=== PATIENT | male | born 1980 | race Caucasian/White ===

== ENCOUNTER 2017-07-26 09:49 | Emergency (ER) | payer BC ==
[~2017-07-26] VITALS: Ht 165.1 cm; Wt 105.6 kg
[2017-07-26 09:54] VITALS: Ht 165.1 cm; Wt 105.6 kg
--- NOTE | 2017-07-26 10:38 | EMERGENCY ROOM VISIT NOTE ---
History Report prepared by Gracy: Maia Ashraf Under the Supervision of: Dr. Myrna Haddad D.O. First contact with patient: 10:11 Chief Complaint: CARDIAC ASSESSMENT Stated Complaint: CHEST PAINS;SORENESS IN LEFT ARM Nursing Triage Summary: Left sided chest pain going down left arm ongoing for a month, worse today. Denies dyspnea. Pt has not been seen for this. "strong family cardiac history". Hx hyperlipidemia and sleep apnea. History of Present Illness The patient is a 37 year old male who presents to the Emergency Room with complaints of an episode of a sharp pain in his left arm radiating to his chest occurring a couple hours ago. The patient was driving to [place] to visit family when the episode occurred. He reports that moving his arm relieved his pain. The patient notes intermittent left chest "twinges" that radiate to his left arm beginning a month ago. The patient notes about ten of these episodes over the past month. He states these episodes have all been the same in severity and last a couple minutes at a time. He states today's episode, was more severe than the previous which prompted him to come to the ED. Presently, he denies any pain. He denies doing anything to make these episodes subside, they go away on their own. The patient thought these episodes were muscular related and due to recent travel. He notes smokeless tobacco use and drinking about a pot of coffee a day. The patient is usually very active but notes not exercising since May. He admits a previous history of reflux but denies any recent issues with it. He denies any changes in activities or diet. The patient drank three beers last night which is not normal for him. The patient works as a collections officer and notes increased stress with his job. Pt denies numbness, tingling, headache, dizziness, lightheadedness, back pain, change in vision, fevers, shortness of breath, nausea, vomiting, diarrhea, pain with urination, and melena. The patient has a history of hyperlipidemia and sleep apnea. The patient notes a family history of heart disease, hypertension, hyperlipemia, and cancer. Source of History: patient Onset: a couple hours ago Position: arm (left) Quality: sharp Timing: other (episode) Modifying Factors (Relieving): movement Associated Symptoms: + chest pain, No fevers, No headache, No SOB, No numbness Review of Systems See HPI for pertinent positives & negatives. A total of 10 systems reviewed and were otherwise negative. Past Medical & Surgical Medical Problems: (1) Hyperlipemia (2) Sleep apnea Family History FH: hyperlipidemia FH: hypertension FHx: cancer Heart disease Social History Smoking Status: Never Smoker Smokeless Tobacco Use: Yes Marital Status: Housing Status: lives with significant other Occupation Status: employed Current/Historical Medications No Active Prescriptions or Reported Meds Allergies Coded Allergies: No Known Allergies (Unverified , 07/26/17) Physical Exam Vital Signs Date Time Temp Pulse Resp B/P (MAP) Pulse Ox O2 Delivery O2 Flow Rate FiO2 07/26/17 12:56 62 18 130/62 96 07/26/17 12:16 59 18 130/82 96 Room Air 07/26/17 11:22 36.8 07/26/17 11:16 68 20 143/90 98 Room Air 07/26/17 10:13 75 07/26/17 09:54 100 Room Air 07/26/17 09:54 36.5 85 18 168/100 98 Room Air Physical Exam GENERAL: alert, well appearing, well nourished, no distress, non-toxic EYE EXAM: normal conjunctiva, PERRL and EOM's grossly intact OROPHARYNX: no exudate, no erythema, lips, buccal mucosa, and tongue normal and mucous membranes are moist NECK: supple, no nuchal rigidity, no adenopathy, non-tender LUNGS: Clear to auscultation. Normal chest wall mechanics, no wheezes/rhonchi/ rales HEART: no murmurs, S1 normal and S2 normal, no reducible chest wall pain ABDOMEN: abdomen soft, non-tender, normo-active bowel sounds, no masses, no rebound or guarding. BACK: Back is symmetrical on inspection and there is no deformity, no midline tenderness, no CVA tenderness. SKIN: no rashes and no bruising UPPER EXTREMITIES: upper extremities are grossly normal. Normal range of motion , normal pulses. LOWER EXTREMITIES: No pitting edema. Normal range of motion, normal pulses. NEURO EXAM: Normal sensorium, cranial nerves II-XII grossly intact, normal speech, no gross weakness of arms, no gross weakness of legs. Medical Decision & Procedures ER Provider Diagnostic Interpretation: Radiology results have been interpreted by the radiologist and reviewed by me. CHEST ONE VIEW PORTABLE FINDINGS: The bones soft tissues and hemidiaphragms are normal. The cardiomediastinal silhouette is normal. The lungs are clear. The pulmonary vasculature is normal. IMPRESSION: Negative chest. The above report was generated using voice recognition software. It may contain grammatical, syntax or spelling errors. Electronically signed by: Brando Arnold M.D. Laboratory Results 07/26/17 10:10 Red Blood Count 5.24, Mean Corpuscular Volume 87.8, Mean Corpuscular Hemoglobin 30.3, Mean Corpuscular Hemoglobin Concent 34.6, Mean Platelet Volume 10.4, Neutrophils (%) (Auto) 40.9, Lymphocytes (%) (Auto) 40.8, Monocytes (%) (Auto) 13.8, Eosinophils (%) (Auto) 3.5, Basophils (%) (Auto) 0.7, Neutrophils # (Auto ) 2.43, Lymphocytes # (Auto) 2.43, Monocytes # (Auto) 0.82, Eosinophils # (Auto ) 0.21, Basophils # (Auto) 0.04 07/26/17 10:10 Test 07/26/17 10:10 07/26/17 12:27 White Blood Count 5.95 K/uL (4.8-10.8) Red Blood Count 5.24 M/uL (4.7-6.1) Hemoglobin 15.9 g/dL (14.0-18.0) Hematocrit 46.0 % (42-52) Mean Corpuscular Volume 87.8 fL (80-100) Mean Corpuscular Hemoglobin 30.3 pg (25-34) Mean Corpuscular Hemoglobin Concent 34.6 g/dl (32-36) Platelet Count 227 K/uL (130-400) Mean Platelet Volume 10.4 fL (7.4-10.4) Neutrophils (%) (Auto) 40.9 % Lymphocytes (%) (Auto) 40.8 % Monocytes (%) (Auto) 13.8 % Eosinophils (%) (Auto) 3.5 % Basophils (%) (Auto) 0.7 % Neutrophils # (Auto) 2.43 K/uL (1.4-6.5) Lymphocytes # (Auto) 2.43 K/uL (1.2-3.4) Monocytes # (Auto) 0.82 K/uL (0.11-0.59) Eosinophils # (Auto) 0.21 K/uL (0-0.5) Basophils # (Auto) 0.04 K/uL (0-0.2) RDW Standard Deviation 39.8 fL (36.4-46.3) RDW Coefficient of Variation 12.4 % (11.5-14.5) Immature Granulocyte % (Auto) 0.3 % Immature Granulocyte # (Auto) 0.02 K/uL (0.00-0.02) Prothrombin Time 10.0 SECONDS (9.0-12.0) Prothromb Time International Ratio 1.0 (0.9-1.1) D-Dimer 410 ug/L FEU (0-500) Anion Gap 4.0 mmol/L (3-11) Est Creatinine Clear Calc Drug Dose 86.9 ml/min Estimated GFR () 81.0 Estimated GFR (Non- 69.9 BUN/Creatinine Ratio 16.0 (10-20) Calcium Level 8.9 mg/dl (8.5-10.1) Total Bilirubin 0.3 mg/dl (0.2-1) Aspartate Amino Transf (AST/SGOT) 20 U/L (15-37) Alanine Aminotransferase (ALT/SGPT) 37 U/L (12-78) Alkaline Phosphatase 40 U/L (45-117) Troponin I < 0.015 ng/ml (0-0.045) Total Protein 7.5 gm/dl (6.4-8.2) Albumin 4.0 gm/dl (3.4-5.0) Globulin 3.5 gm/dl (2.5-4.0) Albumin/Globulin Ratio 1.2 (0.9-2) Bedside Troponin I < 0.030 ng/ml (0-0.045) Laboratory results per my review. ECG Indication: chest pain Rate (beats per minute): 67 Rhythm: normal sinus Findings: T-wave inversion (in lead three only), no acute ischemic change, other (normal axis) ED Course 1016: The patient was evaluated in room B5. A complete history and physical exam was performed. 1158: The patient has had no reoccurrence of symptoms and is resting comfortably. 1250: The patient is resting comfortably and is ready to go home. 1258: Upon reevaluation, the patient is feeling better. I discussed the findings and the treatment plan with the patient. He verbalizes agreement and understanding. The patient was discharged home. Medical Decision Differential diagnosis: Etiologies such as cardiac ischemia, aortic dissection, pulmonary embolism, pneumonia, pneumothorax, musculoskeletal, infections, pericarditis, myocarditis , esophageal rupture, gastrointestinal, as well as others were entertained. HEART score 0 Doubt ACS, PE, dissection, tamponade, effusion, perforation, GI bleed. Patient symptoms given diet and age more likely related to GI origin. Discussed with him reducing acidity in his diet, discussed follow-up with family doctor as a precaution given family history. Patient had 2 troponins both negative here. Discussed symptoms to watch and return for, he verbalized understanding was agreeable with plan. Medication Reconcilliation Current Medication List: was personally reviewed by me Blood Pressure Screening Patient's blood pressure: Elevated blood pressure Blood pressure disposition: Elevated BP felt to be situational Impression Primary Impression: Chest pain Scribe Attestation The scribe's documentation has been prepared under my direction and personally reviewed by me in its entirety. I confirm that the note above accurately reflects all work, treatment, procedures, and medical decision making performed by me. Departure Information Dispostion Home / Self-Care Prescriptions No Active Prescriptions or Reported Meds Referrals No Doctor, Assigned (PCP) Forms IMPORTANT VISIT INFORMATION Patient Instructions My [facility] Additional Instructions Please try to minimize the amount of acidity in your diet which could be contributing to underlying gastritis and reflux. These include alcohol, coffee , soda, tomato-based products, and citrus fruits. Please follow up with your family doctor as a precaution. If you have any recurrent episodes of chest pain , left arm pain, develop back pain, dizziness, trouble breathing, vomiting, or you've any other new concerns, please return the emergency room. Problem Qualifiers Primary Impression: Chest pain Chest pain type: unspecified Qualified Codes: R07.9 - Chest pain, unspecified
--- NOTE | 2017-07-26 11:06 | DIAGNOSTIC IMAGING REPORT ---
CHEST ONE VIEW PORTABLE CLINICAL HISTORY: chest pain pain COMPARISON STUDY: No previous studies for comparison. FINDINGS: The bones soft tissues and hemidiaphragms are normal. The cardiomediastinal silhouette is normal. The lungs are clear. The pulmonary vasculature is normal. IMPRESSION: Negative chest. The above report was generated using voice recognition software. It may contain grammatical, syntax or spelling errors. Electronically signed by: Brando Arnold M.D. 07/26/2017 11:05 AM Dictated Date/Time: 07/26/2017 11:05 AM
[2017-07-26 11:09] LABS: BASO % 0.7 %; BASO ABS # 0.04 K/uL (0-0.2); COMPLETE YES; EOS % 3.5 %; IG% 0.3 %; LYMPH % 40.8 %; LYMPH ABS # 2.43 K/uL (1.2-3.4); MEAN CELL VOLUME 87.8 fL (80-100); MEAN CORPUSCULAR HEMOGLOBIN 30.3 pg (25-34); MEAN CORPUSCULAR HGB CONC 34.6 g/dl (32-36); MEAN PLATELET VOLUME 10.4 fL (7.4-10.4); MONO % 13.8 %; NEUT % 40.9 %; PLATELET COUNT 227 K/uL (130-400); RED BLOOD COUNT 5.24 M/uL (4.7-6.1); WHITE BLOOD COUNT 5.95 K/uL (4.8-10.8)
[2017-07-26 11:22] VITALS: TEMP 36.8
[2017-07-26 11:27] LABS: ALT/SGPT 37 U/L (12-78); BLOOD UREA NITROGEN 21 mg/dl (7-18); CALCIUM 8.9 mg/dl (8.5-10.1); CARBON DIOXIDE 31 mmol/L (21-32); CHLORIDE 103 mmol/L (98-107); CREATININE 1.29 mg/dl (0.60-1.40); GLUCOSE 80 mg/dl (70-99); POTASSIUM 4.1 mmol/L (3.5-5.1); SODIUM 139 mmol/L (136-145)
[2017-07-26 11:31] LABS: ALB/GLOB RATIO 1.2 (0.9-2); ALKALINE PHOSPHATASE 40 U/L (45-117); AST/SGOT 20 U/L (15-37)
[2017-07-26 12:56] VITALS: BP 130/62; PULSE 62; O2SAT 96
== END 2017-07-26 12:58 | disposition home or self-care (01) ==
LOC: C.EDB 09:52
DX: R07.9 Chest pain, unspecified (principal); E78.5 Hyperlipidemia, unspecified; G47.30 Sleep apnea, unspecified; Z82.49 Family history of ischemic heart disease and other diseases of the circulatory system; Z80.9 Family history of malignant neoplasm, unspecified